=== PATIENT | female | born 1965 | race Caucasian/White ===

== ENCOUNTER 2018-04-14 01:13 | Emergency (ER) | payer BC, OTHER ==
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
[2018-04-14 02:53] VITALS: BP 105/74
== END 2018-04-14 02:52 | disposition home or self-care (01) ==
LOC: ED 01:13
DX: S16.1XXA Strain of muscle, fascia and tendon at neck level, initial encounter (principal); M54.2 Cervicalgia; V49.9XXA Car occupant (driver) (passenger) injured in unspecified traffic accident, initial encounter; Y92.9 Unspecified place or not applicable
CPT/HCPCS: 99282

== ENCOUNTER → 2018-12-27 05:47 | Day surgery (SDC) | payer OTHER ==
[~2018-12-27 05:47] MED LIST: Buffered Lidocaine 1% SYRIN* 1 ML/SYRINGE INTRADERM ONE; Bupivacaine 0.25% SDV PF* 10 ML VIAL INJ ONE; Lactated Ringers 1000 ML Bag* 1,000 ML IV SCH; Lidocaine 1% INJ* 10 MG/ML 30 ML SDV ONE; Midazolam* 1 MG/ML 2 ML VIAL (2 MG) ONE; Naloxone* 0.4 MG/ML 1 ML VIAL IV PRN; ceFAZolin 2 GM PREMIX in ORs 2 GM/50 ML BAG IVPB ONE; fentaNYL* 50 MCG/ML 2 ML VIAL (100 MCG VIAL) ONE
[2018-12-27 09:01] VITALS: BP 125/78
--- NOTE | 2018-12-27 22:49 | OP ---
OPERATIVE REPORT: DATE OF OPERATION: 12/27/18 DATE OF : 65 SURGEON: Darwin Hoff MD OVEN UNLOADER: BRIGHT Guillen A physician sales service assistant was required for the procedure for assistance with positioning, retraction, and closure. ANESTHESIOLOGIST: Dr. Georgina Smyth. ANESTHESIA: Monitored anesthesia care and local anesthesia. Local anesthesia was a 1:1 ratio of [place] 0.5% and lidocaine 1%, both without epinephrine, placed in the distal forearm and around the wr ist. PRE-OP DIAGNOSIS: Right carpal tunnel syndrome. POST-OP DIAGNOSIS: Right carpal tunnel syndrome. OPERATIVE PROCEDURE: Right open carpal tunnel release. ANTIBIOTICS: Ancef 2 g IV. IV FLUIDS: See anesthesia note. TOURNIQUET TIME: 11 minutes at 250 mmHg, forearm. WODK-RW-WDPI TIME: 10 minutes. SPECIMEN: None. IMPLANTS: None. COMPLICATIONS: None. ESTIMATED BLOOD LOSS: Minimal. INDICATIONS FOR PROCEDURE: The patient has a long history of symptoms of the right hand, carpal tunn el, brought on by work activities. The patient treatment it unsuccessfully with wrist bracing. Elec trodiagnostic study showed moderate carpal tunnel syndrome, right hand. The patient opted for surger y. Discussed risks and potential complications. DESCRIPTION OF PROCEDURE: In the preoperative holding, the patient signed written consent. [facility] e extremity was marked in preoperative holding. Consent was for endoscopic versus open, but the endo scopic carpal tunnel instrumentation was not available. The patient was brought back to the [facility] room on stretcher. Hand table was applied. Tourniquet was placed around the forearm. The patient was sedated. Mini time-out was performed. Local anesthesia was applied into the forearm and wrist area. We next prepped and draped. A surgical time-out was performed. Standard open skin incision was made. I switched knives. Dissected down the longitudinal fascia. R etractor was placed and deepened. Incised longitudinal fascia. Approached transverse carpal ligamen t. Cleared it off superficially. Incised it with a 15 blade. Cleaned the undersurface of the transv erse carpal ligament with a [place] elevator. I used spreading dissection to expose it superficially. Completed the release distally. Repositioned myself. Flexed the wrist a bit and released the transverse carpal ligament proximally w ith scissors. Irrigation. Closure of the skin with horizontal mattress stitches using nylon 4-0 suture. Xeroform, 4x4's, sterile Webril, Coban. Tourniquet was elevated just prior to skin incision and dropped after the full dressing had been appl ied. The patient was lightened of sedation and brought to the PACU. DISPOSITION: The patient will follow up in 10 to 14 days. Wound care instructions provided. Pain m edication provided. [id number]/[facility] #: [id number]
== END | disposition home or self-care (01) ==
LOC: OR 05:47
PROVIDERS: ATTEND Orthopaedic Surgery
DX: G56.01 Carpal tunnel syndrome, right upper limb (principal); I10 Essential (primary) hypertension; Z72.0 Tobacco use; K21.9 Gastro-esophageal reflux disease without esophagitis
CPT/HCPCS: J0690; J2250; J3010; J3490

== ENCOUNTER 2019-06-24 05:33 | Inpatient (IN) | payer BC, OTHER ==
[~2019-06-24 05:33] MED LIST changes: -Bupivacaine 0.25% SDV PF* 10 ML VIAL INJ ONE; -Lactated Ringers 1000 ML Bag* 1,000 ML IV SCH; -Lidocaine 1% INJ* 10 MG/ML 30 ML SDV ONE; -Midazolam* 1 MG/ML 2 ML VIAL (2 MG) ONE; -Naloxone* 0.4 MG/ML 1 ML VIAL IV PRN; -ceFAZolin 2 GM PREMIX in ORs 2 GM/50 ML BAG IVPB ONE; -fentaNYL* 50 MCG/ML 2 ML VIAL (100 MCG VIAL) ONE
[2019-06-24] MEDS ORDERED: Gabapentin CAP(*) 300 MG PO ONE (06:00)
[2019-06-24] MEDS ORDERED: Lactated Ringers 1000 ML Bag* 1,000 ML IV SCH ×2 (06:00→13:00)
[2019-06-24] MEDS ORDERED: celeCOXIB CAP* 200 MG PO ONE (06:00)
[2019-06-24] MEDS ORDERED: Acetaminophen TAB* 325 MG PO ONE (06:00)
[2019-06-24] MEDS ORDERED: Acetaminophen TAB* 325 MG ONE (06:01)
[2019-06-24] MEDS ORDERED: Vancomycin(*) 1,000 MG VIAL ONE (06:01)
[2019-06-24] MEDS ORDERED: Gabapentin CAP(*) 300 MG ONE (06:01)
[2019-06-24] MEDS ORDERED: celeCOXIB CAP* 200 MG ONE (06:02)
[2019-06-24] MEDS ORDERED: Buffered Lidocaine 1% SYRIN* 1 ML/SYRINGE INTRADERM ONE (06:02)
[2019-06-24] MEDS ORDERED: Propofol* 10 MG/ML 20 ML BTL ONE (06:45)
[2019-06-24] MEDS ORDERED: fentaNYL* 50 MCG/ML 5 ML VIAL (250 MCG VIAL) ONE (06:45)
[2019-06-24] MEDS ORDERED: Midazolam* 1 MG/ML 2 ML VIAL (2 MG) ONE (06:45)
[2019-06-24] MEDS ORDERED: Lidocaine 2% PF* 10 ML AMP ONE (06:45)
[2019-06-24] MEDS ORDERED: Succinylcholine* 20 MG/ML 10 ML VIAL ONE (06:45)
[2019-06-24] MEDS ORDERED: Remifentanil* 2 MG VIAL ONE (06:46)
[2019-06-24] MEDS ORDERED: Propofol* 500 MG/50 ML BTL ONE ×2 (06:52→09:40)
[2019-06-24] MEDS ORDERED: Lidocaine 1% w EPI 1:200,000* SDV 30 ML VIAL ONE ×2 (07:24→07:39)
[2019-06-24] MEDS ORDERED: Bacitracin INJECTION* 50,000 UNITS ONE (07:24)
[2019-06-24] MEDS ORDERED: Artificial Tear OPHTH.OINT* 3.5 GM ONE (07:35)
[2019-06-24] MEDS ORDERED: Dexamethasone IV* 4 MG/ML 1 ML (4 MG) ONE (08:40)
[2019-06-24] MEDS ORDERED: HYDROmorphone INJ1* 1 MG/ML SYRINGE ONE (08:53)
[2019-06-24] MEDS ORDERED: Naloxone* 0.4 MG/ML 1 ML VIAL IV PRN (10:24)
[2019-06-24] MEDS ORDERED: diPHENhydraMINE IV* 50 MG/ML 1 ml VIAL (BENADRYL) IV PRN (10:24)
[2019-06-24] MEDS ORDERED: PROCHLORPERAZINE INJ 5 MG/ML 2 ML VIAL IV PRN (10:24)
[2019-06-24] MEDS ORDERED: HYDROmorphone INJ1* 1 MG/ML SYRINGE IV PRN (10:24)
[2019-06-24] MEDS ORDERED: Ondansetron INJ* 2 MG/ML VIAL IV PRN ×2 (10:24→12:09)
[2019-06-24] MEDS ORDERED: Ondansetron INJ* 2 MG/ML VIAL ONE (11:02)
[2019-06-24] MEDS ORDERED: oxyCODONE TAB* 5 MG TAB ONE (12:07)
[2019-06-24] MEDS: oxyCODONE TAB* 5 MG TAB PO PRN ×2 (12:08→12:10)
[2019-06-24] MEDS ORDERED: Acetaminophen TAB* 325 MG PO PRN (12:09)
[2019-06-24] MEDS ORDERED: HYDROcodone/ACETAMIN 5-325 MG* 1 TAB PO PRN (12:09)
[2019-06-24] MEDS ORDERED: Magnesium Hydroxide LIQ* 30 ML UDC PO PRN (12:09)
[2019-06-24] MEDS: Vancomycin(*) 1,000 MG - ED ONCE IVPB SCH ×4 (13:51→13:52)
[2019-06-24] MEDS ORDERED: hydrALAZINE IV* 20 MG/ML VIAL IV SLOW PU PRN (13:54)
[2019-06-24] MEDS: Lisinopril TAB* 10 MG PO SCH (14:39)
[2019-06-24] MEDS ORDERED: Nicotine Lozenge* mini 2 MG LOZNG.MINI MT PRN (14:45)
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
[2019-06-24 15:28] LABS: ABS Lymphocytes 0.8 10^3/ul (1.0-4.8); ABS Monocytes 0.1 10^3/ul (0-0.8); ABS Neutrophils 10.5 10^3/ul (1.5-7.7); Hematocrit 36 % (35-47); Hemoglobin 12.3 g/dL (12.0-16.0); Lymphocyte % 7.4 %; Mean Corpuscular HGB Conc 34 g/dL (31-36); Mean Corpuscular Hemoglobin 31 pg (27-31); Mean Corpuscular Volume 92 fL (80-97); Mean Platelet Volume 7.6 fL (7.4-10.4); Platelet Count 253 10^3/uL (150-450); Red Blood Count 3.94 10^6 /uL (3.70-4.87); Red Cell Distribution Width 14 % (10-15); White Blood Count 11.4 10^3/uL (3.5-10.8)
[2019-06-24 15:57] LABS: BUN/Creatinine Ratio 22.1 (8-20); Calcium 9.2 mg/dL (8.6-10.3); EGFR African American 94.9 (>60); EGFR Non-African American 78.4 (>60); Potassium 4.1 mmol/L (3.5-5.0)
--- NOTE | 2019-06-24 16:10 | OP ---
DATE OF OPERATION: 06/24/19 - ROOM #334 DATE OF : 65 SURGEON: Cortney Huber MD MAIL PROCESSOR: CAMERON Rosenberg. The case was done with the assistance of CAMERON because of the complexity of the case. ANESTHESIA: General. PRE-OP DIAGNOSES: 1. Degenerative disk disease. 2. Herniated nucleus pulposus. 3. Cervical myelopathy. POST-OP DIAGNOSES: 1. Degenerative disk disease. 2. Herniated nucleus pulposus. 3. Cervical myelopathy. OPERATIVE PROCEDURE: The patient underwent anterior cervical diskectomy and fusion at C5-6 and C6-7 with PEEK interbody cages, locally harvested autologous bone graft and DBX with plate and screws with intraoperative monitoring. ESTIMATED BLOOD LOSS: 20 cc. COMPLICATIONS: None. SUMMARY: The patient is a very pleasant 53-year-old female with complaints of neck pain radiating mostly to the left upper extremity with signs of myelopathy with MRI findings consistent with large disk herniation at C5-6 and disk herniation with degenerative disk disease at C4-5. After failing conservative treatment modalities, she was offered the option of surgical intervention. After explaining the expectations, limitations, and possible complications of the procedure to the patient with complications including, but not limited to bleeding, infection, risk of injury to adjacent structures, coma, paralysis, , need for additional procedures, anesthesia risks, stroke, blindness, cancer, instability, hardware failure, adjacent level disease, pseudoarthrosis, spinal fluid leak, injury to the recurrent laryngeal nerve, Arpit syndrome, injury to the esophagus or trachea, need for tracheostomy or gastrostomy, need for prolonged ICU stay, prolonged hospitalization, prolonged rehabilitation, postoperative hematoma formation; the patient was agreeable to proceed with surgery and informed consent was obtained. The patient understood that her condition may not improve and in fact may get worse after surgery and that the purpose of the surgery is to prevent from worsening of her myelopathy. The patient understood that operative plan may be modified according to intraoperative findings and conditions and that the procedure may be aborted or done in more than 1 stages and that she may need to have additional procedures in the future. She understood that she may require prolonged ICU stay, need for tracheostomy or gastrostomy, or prolonged rehabilitation. DESCRIPTION OF PROCEDURE: The patient was brought to the operating room and was placed under general anesthesia by the anesthesia team. She was carefully positioned supine on the Edwin table and all bony prominences were meticulously padded. Her skin was prepped and draped in the standard fashion, and after appropriate surgical pause and patient identification, a small transverse incision towards the right of the midline was marked on the skin over the level of C5. After infiltrating the skin with local anesthetic, a #10 surgical blade was used to incise the skin and the incision was carried down to the subcutaneous tissue with use of Bovie cautery. The skin was carefully undermined with tenotomy scissors and then the platysma was gently elevated and divided with tenotomy scissors. After meticulous dissection with sharp and blunt dissection, the plane between the medial border of the sternocleidomastoid and the medial structures was gently developed and self- retaining retractors were introduced further into the field. Intraoperative fluoroscopic imaging confirmed appropriate surgical level and [place] pins were then inserted in the C4, C5, and C7 vertebral bodies. Self-retaining retractors were introduced further into the field and attention was brought to perform a diskectomy and preparation of the disk space at C5-6 level under microscopic magnification. The annulus fibrosus was incised with #15 surgical blade and after performing a standard diskectomy with pituitary rongeurs, Kerrison punches, curettes and high-speed drill, the posterior longitudinal ligament was identified. Of note, during the disk preparation, the anterior osteophytes were removed with Kerrison punches and were saved for the arthrodesis part of the procedure. The large disk herniation was identified as expected from the preoperative imaging and disk fragments were gently removed with use of fine blunt nerve hook. Then, the posterior longitudinal ligament was gently divided with use of #1 Kerrison punches and the thecal sac was then freed from any compression phenomenon. Indentation on the midline of the thecal sac was identified and was believed to be the sequelae of the central disk herniation. After the decompression, the thecal sac was found to be free of any pressure phenomenon and the spinal cord was pulsating nicely. After copious irrigation, confirmation of meticulous hemostasis, meticulous inspection and appropriate sizing of the disk space, an 8-mm height PEEK interbody cage filled with locally harvested bone graft and DBX was inserted. The [place] pin from the C6 level was gently removed and the self-retaining retractors were then repositioned for the C4-5 level. Of note, every time that the self-retaining retractors were positioned, the Apfelbaum maneuver was performed. A similar procedure was performed for the C4-5 level and after excellent decompression of the thecal sac, 8-mm PEEK interbody cage filled with locally harvested bone graft during the diskectomy and disk preparation phase as well as DBX was inserted. The remaining of the [place] pins was then removed and after confirmation of meticulous hemostasis, the preparation of the anterior vertebral bodies was performed for the placement of the surgical plate. A Medtronic Zevo cervical plate was then placed and was secured in place with temporary pins. Intraoperative fluoroscopic imaging confirmed excellent placement of all hardware. After using hand drill and placing the 13- mm titanium screws, intraoperative fluoroscopic imaging confirmed excellent placement of all hardware. Then, the self-retaining retractors were removed from the field and after copious irrigation, confirmation of meticulous hemostasis and meticulous inspection, the wound was closed by layers with 2-0 interrupted Vicryl sutures to approximate the platysma and inverted interrupted 2-0 Vicryl sutures to approximate the subcutaneous tissue. The skin was covered with Dermabond. At the end of the procedure, all counts were reported to be correct. The patient remained hemodynamically stable throughout the case. She was then extubated and was transferred to Recovery in excellent condition, moving all extremities well. The case was done with the assistance of CAMERON because of the complexity of the case. [id number]/[facility] #: [id number] [facility]
[2019-06-24] MEDS ORDERED: buPROPion SR TAB.SR* 100 MG PO ONE (17:00)
[2019-06-25] MEDS ORDERED: buPROPion SR TAB.SR* 100 MG PO ONE (08:45)
[2019-06-25] MEDS: HYDROcodone/ACETAMIN 5-325 MG* 1 TAB PO PRN ×3 (08:57→20:00)
[2019-06-25] MEDS: Lisinopril TAB* 10 MG PO SCH (08:59)
[2019-06-25] MEDS: Pantoprazole TAB * 40 MG TAB PO SCH (08:59)
[2019-06-25] MEDS: buPROPion SR TAB.SR* 150 MG PO SCH ×2 (09:02→16:50)
--- NOTE | 2019-06-25 17:18 | PN ---
Subjective Date of Service: 06/25/19 Interval History: Patient seen and examined. Just returned from [facility]. States pain is well controlled. Denies any UE weakness or paresthesias. Notes a mild headache, denies n/v, no SOB, no chest pain. Objective Active Medications: Acetaminophen (Tylenol Tab*) 650 mg PO Q4H PRN PRN Reason: MILD PAIN or TEMP > 100.4 Last Admin: 06/24/19 22:33 Dose: 650 mg Hydrocodone Bitart/Acetaminophen ([place] 5-325 Tab*) 1 tab PO Q4H PRN PRN Reason: moderate pain Last Admin: 06/25/19 07:49 Dose: 1 tab Hydrocodone Bitart/Acetaminophen ([place] 5-325 Tab*) 2 tab PO Q4H PRN PRN Reason: PAIN - SEVERE Last Admin: 06/25/19 15:01 Dose: 2 tab Bupropion HCl (Wellbutrin Sr Tab*) 150 mg PO BID WITH MEALS [facility] Last Admin: 06/25/19 16:50 Dose: 150 mg Hydralazine HCl (Apresoline Iv*) 10 mg IV SLOW PU Q4H PRN PRN Reason: BLOOD PRESSURE Lactated Ringer's (Lactated Ringers 1000 Ml Bag*) 1,000 mls @ 50 mls/hr IV .per rate [facility] Last Admin: 06/24/19 13:36 Dose: 50 mls/hr Lisinopril (Prinivil Tab*) 20 mg PO DAILY [facility] Last Admin: 06/25/19 08:59 Dose: 20 mg Magnesium Hydroxide (Milk Of Magnesia Liq*) 30 ml PO DAILY PRN PRN Reason: CONSTIPATION Last Admin: 06/25/19 10:28 Dose: 30 ml Nicotine Polacrilex (Nicotine Lozenge Mini) 2 mg MT Q2H PRN PRN Reason: CRAVING Ondansetron HCl (Zofran Inj*) 4 mg IV Q6H PRN PRN Reason: NAUSEA/VOMITING Pantoprazole Sodium (Protonix Tab*) 40 mg PO DAILY [facility] Last Admin: 06/25/19 08:59 Dose: 40 mg Vital Signs - 8 hr 06/25/19 06/25/19 06/25/19 10:24 10:34 11:51 Temperature 98.3 F Pulse Rate 65 Respiratory 18 18 16 Rate Blood Pressure 116/62 (mmHg) O2 Sat by Pulse 97 Oximetry 06/25/19 06/25/19 06/25/19 15:01 15:29 16:49 Temperature 98.2 F Pulse Rate 71 Respiratory 18 18 18 Rate Blood Pressure 116/54 (mmHg) O2 Sat by Pulse 97 Oximetry Oxygen Devices in Use Now: None Appearance: alert, NAD Eyes: PERRLA Ears/Nose/Mouth/Throat: Mucous Membranes Moist Neck: NL Appearance and Movements; NL JVP, Trachea Midline Respiratory: Symmetrical Chest Expansion and Respiratory Effort, Clear to Auscultation Cardiovascular: NL Sounds; No Murmurs; No JVD, RRR Extremities: No Edema Skin: No Rash or Ulcers Neurological: Alert and Oriented x 3, NL Sensation, NL Gait, NL Muscle Strength and Tone Nutrition: Taking PO's Result Diagrams: 06/24/19 15:14 06/24/19 15:14 Diagnostic Imaging: Patient Name: RIANA GALVAN Medical Record#: [id number] Ordering Physician: Cortney Huber MD Acct.#: [id number] : 1965 Age: 53 Sex: F Location: SURGICAL STAY UNIT Exam Date: 06/25/19 0600 ADM Status: ADM IN Order Information: SP CERVICAL 2-3 VWS Accession Number: [id number] CPT: 62873 Indication: Postop assessment following cervical fusion yesterday. Comparison: No relevant prior exams available on the [facility] [place] [place] PACS for comparison. Technique: AP, open-mouth odontoid, and lateral views cervical spine. REPORT AND IMPRESSION: #. Postsurgical change of C4-C5 and C5-C6 core decompression and fusion with bone graft markers at the disc spaces as well as an anterior cortical plate and paired vertebral body screws at C4, C5, and C6. #. Negative for fracture. #. Anatomic alignment. #. Only mild prominence of the prevertebral soft tissue contours. Assess/Plan/Problems-Billing Assessment: This is a 53 year old female with hx of cervical spondylosis that presented for elective ACDF. - Patient Problems (1) Status post cervical spinal fusion Code(s): Z98.1 - ARTHRODESIS STATUS SNOMED Code(s): 6755882096987 Comment: - POD1 C4-C5, C5-C6 ACDF - POC as per neurosurgery - [place] J collar - Pain control - Bowl regimen - Ambulate as tolerated (2) GERD (gastroesophageal reflux disease) Code(s): K21.9 - GASTRO-ESOPHAGEAL REFLUX DISEASE WITHOUT ESOPHAGITIS SNOMED Code(s): 934089922 Comment: - PPI (3) HTN (hypertension) Code(s): I10 - ESSENTIAL (PRIMARY) HYPERTENSION SNOMED Code(s): 46646055 Comment: - Stable on lisinopril (4) Depression Code(s): F32.9 - MAJOR DEPRESSIVE DISORDER, SINGLE EPISODE, UNSPECIFIED SNOMED Code(s): 32325465 Comment: - continue buproprion (5) DVT prophylaxis Code(s): Z29.9 - ENCOUNTER FOR PROPHYLACTIC MEASURES, UNSPECIFIED SNOMED Code( s): 397956563 Comment: - SCDS and ambulate (6) Full code status Code(s): Z78.9 - OTHER SPECIFIED HEALTH STATUS SNOMED Code(s): 671997672 Status and Disposition: Medically stable. Clear for discharge per neurosurgery.
--- NOTE | 2019-06-25 19:23 | PN ---
Progress Note - Progress Note Date of Service: 06/25/19 SOAP: Subjective: []No events ON. Tolerated procedure well yesterday. Preop LUE pain and numbness resolved. Ambulates, Tolerates PO well, Voids. Objective: []VSS, Afebrile Wound s,c,d. AAOx3, LUCIO, CN II-XII grossly intact Motor 5/5 all extremities Sensory grossly intact to light touch Assessment: []53 yof POD#1 ACDF Plan: []Monitor VS, Neurochecks Encourage ambulation. XR reveals good placement of hardware, good alignment of spine. IS DC planning, possible in am. Ana Laura Huber MD
[2019-06-26] MEDS: HYDROcodone/ACETAMIN 5-325 MG* 1 TAB PO PRN ×3 (01:16→13:41)
[2019-06-26] MEDS: Lisinopril TAB* 10 MG PO SCH (08:23)
[2019-06-26] MEDS: Pantoprazole TAB * 40 MG TAB PO SCH (08:23)
[2019-06-26] MEDS: buPROPion SR TAB.SR* 150 MG PO SCH (08:23)
[2019-06-26 11:28] VITALS: BP 122/60
--- NOTE | 2019-06-26 18:56 | PN ---
Progress Note - Progress Note Date of Service: 06/26/19 SOAP: Subjective: [] No events ON. Preop LUE pain and numbness resolved. Ambulates, Tolerates PO well , Voids. Wants to go home. Objective: []VSS, Afebrile Wound s,c,d. AAOx3, LUCIO, CN II-XII grossly intact Motor 5/5 all extremities Sensory grossly intact to light touch Assessment: []53 yof POD#2 ACDF Plan: []Monitor VS, Neurochecks Encourage ambulation. DC today. Full instyructions were given Appreciate IM care. Ana Laura Huber MD
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
== END 2019-06-26 14:43 | disposition home or self-care (01) | DRG 321 ==
LOC: OR 05:33 → SSU 12:09
PROVIDERS: ADMIT Neurological Surgery; ATTEND Internal Medicine
PROC: 0RB30ZZ Excision of Cervical Vertebral Disc, Open Approach (ICD-10-PCS; 2019-06-24)
PROC: 4A11X4G Monitoring of Peripheral Nervous Electrical Activity, Intraoperative, External Approach (ICD-10-PCS; 2019-06-24)
PROC: 0RG20A0 Fusion of 2 or more Cervical Vertebral Joints with Interbody Fusion Device, Anterior Approach, Anterior Column, Open Approach (ICD-10-PCS; principal; 2019-06-24 07:30)
DX: M50.022 Cervical disc disorder at C5-C6 level with myelopathy (principal); M47.12 Other spondylosis with myelopathy, cervical region; I10 Essential (primary) hypertension; F17.210 Nicotine dependence, cigarettes, uncomplicated; R51 Headache; M48.02 Spinal stenosis, cervical region; K21.9 Gastro-esophageal reflux disease without esophagitis; F32.9 Major depressive disorder, single episode, unspecified; M25.812 Other specified joint disorders, left shoulder; Z88.0 Allergy status to penicillin; Z82.3 Family history of stroke; Z72.89 Other problems related to lifestyle
CPT/HCPCS: 36415; 72040; 76000; 80048; 85025; 86850; 86900; 86901; A9270-GY; C1713; C1776; C9359; J0330; J1100; J1170; J2001; J2250; J2405; J2704; J3010; J3370

== ENCOUNTER 2019-10-28 17:00 | Emergency (ER) | payer BC, OTHER ==
--- OUTSIDE RECORDS SUMMARY | 2019-10-28 17:39 | XMS REPORT | Continuity of Care Document ---
:1965 External Reference #:[id number] Author Name Cortney Huber MD (transmitted by agent of provider Rachel Guzmán ) Address [address] [place] [address] [place] [address] Care Team Providers Name Role Phone Aissatou Taylor NP - Family Care Team Information Cardiac Rehabilitation Program Director [phone] Miguelangel Wilson MD - Family Medicine Care Team Information Cardiac Rehabilitation Program Director [phone] Problems Description No Information Available Social History Type Date Description Comments Sex Female ETOH Use Rarely consumes alcohol Tobacco Use Start: Unknown Patient is a current smoker, 1-2 per day smokes every day Recreational Drug Use Never Used Drugs Smoking Status Reviewed: 10/01/19 Patient is a current smoker, 1-2 per day smokes every day Exercise Type/Frequency Exercises sporadically Allergies, Adverse Reactions, Alerts Active Allergies Reaction Severity Comments Date Penicillin 07/30/2018 Medications Active Medications SIG Qnty Indications Ordering Provider Date Lisinopril 1 by mouth every Unknown 20mg Tablets day Omeprazole 1 by mouth every Unknown 20mg Capsules DR day Acetaminophen Extra 2 tabs by mouth Unknown Strength every 8 hours as 500mg Tablets needed for pain Bupropion Hydrochloride 1 by mouth twice Unknown ER (SR) a day 200mg Tablets ER 12HR Immunizations Description No Information Available Vital Signs Date Vital Result Comment 10/01/2019 11:39am Height 61 inches 5'1" Weight 173.00 lb Heart Rate 62 /min BP Systolic 150 mmHg BP Diastolic 80 mmHg Pain Level 3 shoulder BMI (Body Mass Index) 32.7 kg/m2 09/17/2019 1:12pm Height 61 inches 5'1" Weight 160.00 lb Heart Rate 62 /min BP Systolic 148 mmHg BP Diastolic 92 mmHg Respiratory Rate 16 /min Body Temperature 98.3 F Pain Level 6 O2 % BldC Oximetry 98 % BMI (Body Mass Index) 30.2 kg/m2 Results Test Acquired Date Facility Test Result H/L Range Note Type & Screen 06/24/2019 [facility] Patient Blood A Negative [address] [place] [address] [phone] Antibody Screen NEGATIVE CBC No Diff 05/30/2019 [facility] White Blood 11.4 10^3/uL High 3.5-10.[address] [place] [address] [phone] Red Blood Count 4.39 10^6/uL Normal 3.70-4.87 Hemoglobin 13.6 g/dL Normal 12.0-16.0 Hematocrit 41 % Normal 35-47 Mean Corpuscular Volume 93 fL Normal 80-97 Mean Corpuscular Hemoglobin 31 pg Normal 27-31 Mean Corpuscular HGB Conc 34 g/dL Normal 31-36 Red Cell Distribution Width 14 % Normal 10-15 Platelet Count 309 10^3/uL Normal 150-450 Mean Platelet Volume 8.4 fL Normal 7.4-10.4 Urinalysis Profile 05/30/2019 [facility] Urine Color Yellow [address] [place] [address] [phone] Urine Appearance Cloudy Urine Specific [place] 1.024 Normal 1.010-1.030 Urine pH 5.0 Normal 5-9 Urine Urobilinogen Negative Negative Urine Ketones Negative Negative Urine Protein Negative Negative Urine Leukocytes 1+ Abnormal Negative Urine Blood Negative Negative Urine Nitrite Negative Negative Urine Bilirubin Negative Negative Urine Glucose Negative Negative Urine White Blood Cell 1+(6-10/hpf) Abnormal Absent Urine Red Blood Cell 1+(3-5/hpf) Abnormal Absent Urine Bacteria Absent Absent Urine Squamous Epithelial Cell Present Abnormal Absent Inr/Protime 05/30/2019 [facility] Inr 0.98 Normal 0.82-1.09 2 [address] [place] [address] [phone] Laboratory test 05/30/2019 [facility] Partial 36.3 Normal 26.0 -38.[address] [facility] [place] [address] Time PTT [phone] Basic Metabolic 05/30/2019 [facility] Sodium 138 mmol/L Normal 135-145 Panel [address] [facility] [place] [address] [phone] Potassium 4.0 mmol/L Normal 3.5-5.0 Chloride 105 mmol/L Normal 101-111 Co2 Carbon Dioxide 26 mmol/L Normal 22-32 Anion Gap 7 mmol/L Normal 2-11 Glucose 93 mg/dL Normal 70-100 Blood Urea Nitrogen 11 mg/dL Normal 6-24 Creatinine 0.78 mg/dL Normal 0.51-0.95 BUN/Creatinine Ratio 14.1 Normal 8-20 Calcium 9.5 mg/dL Normal 8.6-10.3 Egfr Non- 77.3 >60 Egfr 93.5 >60 3 Laboratory test 05/30/2019 [facility] HCG 2.56 mIU/mL [address] [place], [place] [address] [phone] Type & Screen 05/30/2019 [facility] Patient Blood A Negative [address] [place] [address] [phone] Antibody Screen NEGATIVE Urine Culture And 05/30/2019 [facility] Urine Culture SEE RESULT [address] [place] [address] [phone] 1 OTHER SPONDYLOSIS WITH MYELOPATHY, CERVICAL REGION 2 Standard intensity warfarin therapeutic range: 2.0-3.0 High intensity warfarin therapeutic range: 2.5-3.5 3 Because ethnic data is not always readily available, this report includes an eGFR for both -Americans and non- Americans. The National Kidney Disease Education Program (NKDEP) does not endorse the use of the MDRD equation for patients that are not between the ages of 18 and 70, are , have extremes of body size, muscle mass, or nutritional status, or are non- or non-. According to the National Kidney Foundation, irrespective of diagnosis, the stage of the disease is based on the level of kidney function: Stage Description GFR(mL/min/1.73 m(2)) 1 Kidney damage with normal or decreased GFR 90 2 Kidney damage with mild decrease in GFR 60-89 3 Moderate decrease in GFR 30-59 4 Severe decrease in GFR 15-29 5 Kidney failure <15 (or dialysis) 4 <5.0 Negative 5.0 - 25.0 Indeterminate (Repeat testing recommended after 72 hours) >25.0 Positive Perimenopausal women can display HCG levels of up to 20 mIU/mL 5 SEE RESULT BELOW Name: TIA PENDLETON : [address]: Cortney Huber MD Acct: [id number] Unit: [id number] AGE: 53 Location: PAT Re05/30/19 SEX: F Status: REG REF SPEC: [id number] NETTA: 05/30/19-[address]: Cortney Huber MD REQ: [id number] RECD: 05/30/19 STATUS: COMP _ SOURCE: URINE SPDESC: ORDERED: Urine Culture Procedure Result Reported Site Urine Culture Final 05/31/19- 1223 ML No Growth (<1,000 CFU/mL) * ML - Main Lab . END OF REPORT DEPARTMENT OF PATHOLOGY, [address] [place] [address] Martin Bello M.D. Director [facility] # [id number] Procedures Date Code Description Status 06/24/201922371 Insertion Interbody Biomechanical Device; Each Interspace Completed 06/24/201947335 Anterior Instrumentation 2-3 Vertebral Segments Completed 06/24/201999194 additional level cervical below C2 Completed 06/24/201905354 arthrodesis,anterior interbody incl disc space Completed prep,discectomy,de 06/24/2019 Autograft For Spine Surgery (Incls Harvesting The Graft) Completed 06/24/2019 12486 Allograft For Spine Surgery, Morselized Completed 04/29/2019 25497 Diffusing Capacity Completed 04/29/2019 29266 Plethysmography Determination Lung Volumes & Per Airway Completed Resist 04/29/2019 63276 Pulmonary Function><Bronchodil Completed Medical Devices Description No Information Available Encounters Type Date Location Provider Dx Diagnosis Office Visit 06/26/2019 [facility] Shanelle M50.022 Cervical disc 10:47a Assoc,vijaya Dukes, disorder at C5-C6 Hospitalists PHARMACY TECH level with myelopathy I10 Essential (primary) hypertension K21.9 Gastro-esophageal reflux disease without esophagitis F32.9 Major depressive disorder, single episode, unspecified Office Visit 06/25/2019 10:47a [place] [facility] Timmons I10 Essential Assoc,vijaya Dukes, (primary) Hospitalists PHARMACY TECH hypertension K21.9 Gastro-esophageal reflux disease without esophagitis F32.9 Major depressive disorder, single episode, unspecified Z98.1 Arthrodesis status Office Visit 06/24/2019 10:46a [facility] Natty Luu, I10 Essential Assoc,vijaya PHARMACY TECH (primary) Hospitalists hypertension K21.9 Gastro-esophageal reflux disease without esophagitis Z98.1 Arthrodesis status Office Visit 04/30/2019 [facility] M47.12 Other 9:30a [facility] Huber MD spondylosis with myelopathy, cervical region M47.22 Other spondylosis with radiculopathy, cervical region M50.022 Cervical disc disorder at C5-C6 level with myelopathy M47.12 Other spondylosis with myelopathy, cervical region Assessments Date Code Description Provider 10/01/2019 M50.321 Other cervical disc degeneration at Cortney Huber MD C4-C5 level 10/01/2019 M47.12 Other spondylosis with myelopathy, Cortney Huber MD cervical region 09/17/2019 M75.42 Impingement syndrome of left shoulder Darwin Hoff MD 09/17/2019 M75.52 Bursitis of left shoulder Darwin Hoff MD 09/17/2019 M19.012 Primary osteoarthritis, left shoulder Darwin Hoff MD 07/30/2019 Z09 Surgical follow-up Cortney Huber MD 07/30/2019 M50.321 Other cervical disc degeneration at Cortney Huber MD C4-C5 level 07/30/2019 M50.022 Cervical disc disorder at C5-C6 level Cortney Huber MD with myelopathy 07/30/2019 Z48.89 Encounter for other specified surgical Cortney Huber MD aftercare 07/30/2019 M50.321 Other cervical disc degeneration at Cortney Huber MD C4-C5 level 07/02/2019 Z48.89 Encounter for other specified surgical BRIGHT Hernandez aftercare 06/26/2019 M50.022 Cervical disc disorder at C5-C6 level Shanelle Dukes NP with myelopathy 06/26/2019 I10 Essential (primary) hypertension Shanelle Dukes, PHARMACY TECH 06/26/2019 K21.9 Gastro-esophageal reflux disease without Shanelle Dukes PHARMACY TECH esophagitis 06/26/2019 F32.9 Major depressive disorder, single Shanelle Dukes PHARMACY TECH episode, unspecified 06/25/2019 I10 Essential (primary) hypertension Shanelle Dukes, PHARMACY TECH 06/25/2019 K21.9 Gastro-esophageal reflux disease without Shanelle Dukes PHARMACY TECH esophagitis 06/25/2019 F32.9 Major depressive disorder, single Shanelle Leah Doto, PHARMACY TECH episode, unspecified 06/25/2019 Z98.1 Arthrodesis status Shanelle [place] Dukes, PHARMACY TECH 06/24/2019 I10 Essential (primary) hypertension Natty Luu, DIVINE 06/24/2019 K21.9 Gastro-esophageal reflux disease without Natty Luu NP esophagitis 06/24/2019 Z98.1 Arthrodesis status Natty Luu, DIVINE 06/24/2019 M50.022 Cervical disc disorder at C5-C6 level Cortney Huber MD with myelopathy 06/24/2019 M47.12 Other spondylosis with myelopathy, Cortney Huber MD cervical region 06/24/2019 M50.321 Other cervical disc degeneration at Cortney Huber MD C4-C5 level 05/28/2019 M47.12 Other spondylosis with myelopathy, Cortney Huber MD cervical region 05/28/2019 M50.022 Cervical disc disorder at C5-C6 level Cortney Huber MD with myelopathy 05/07/2019 M47.12 Other spondylosis with myelopathy, Cortney Huber MD cervical region 04/30/2019 M47.12 Other spondylosis with myelopathy, Cortney Huber MD cervical region 04/30/2019 M47.22 Other spondylosis with radiculopathy, Cortney Huber MD cervical region 04/30/2019 M50.022 Cervical disc disorder at C5-C6 level Cortney Huber MD with myelopathy 04/30/2019 M47.12 Other spondylosis with myelopathy, Cortney Huber MD cervical region 04/29/2019 R05 Cough Delia Reed MD Plan of Treatment Future Appointment(s):02/13/2020 11:00 am - Cortney Huber MD at [facility]11/20/2019 2:30 pm - Darwin Hoff MD at [facility] [place]11/26/2019 9:00 am - Darwin Hoff MD at [facility] at [facility]3810/01/2019 - Cortney Huber MDM50.321 Other cervical disc degeneration at C4-C5 levelNew Xrays:SP Cerv Comp/Obl, Flex, Ext, Ordered: 10/01/19Follow up:RV in 3-6 months, after surgery with Dr Burt.M47.12 Other spondylosis with myelopathy, cervical region Functional Status Description No Information Available Mental Status Description No Information Available Referrals Description No Information Available
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
[2019-10-28 17:40] LABS: ABS Basophils 0.1 10^3/ul (0-0.2); ABS Eosinophils 0.2 10^3/ul (0-0.6); ABS Lymphocytes 3.3 10^3/ul (1.0-4.8); ABS Monocytes 0.5 10^3/ul (0-0.8); ABS Neutrophils 5.1 10^3/ul (1.5-7.7); Eosinophil % 2.6 %; Hematocrit 38 % (35-47); Hemoglobin 13.5 g/dL (12.0-16.0); Lymphocyte % 35.7 %; Mean Corpuscular HGB Conc 36 g/dL (31-36); Mean Corpuscular Hemoglobin 33 pg (27-31); Mean Corpuscular Volume 92 fL (80-97); Platelet Count 299 10^3/uL (150-450); Red Blood Count 4.12 10^6 /uL (3.70-4.87); Red Cell Distribution Width 14 % (10-15); White Blood Count 9.1 10^3/uL (3.5-10.8)
--- OUTSIDE RECORDS SUMMARY | 2019-10-28 17:40 | XMS REPORT | Continuity of Care Document ---
:1965 External Reference #:[id number] Author Name Darwin Hoff MD (transmitted by agent of provider Geetha Miguel) Address [address] [place] [id number] Care Team Providers Name Role Phone Aissatou Taylor NP - Family Care Team Information [place] [phone] Miguelangel Wilson MD - Family Medicine Care Team Information [place] Problems Description No Information Available Social History Type Date Description Comments Sex Female ETOH Use Rarely consumes alcohol Tobacco Use Start: Unknown Patient is a current smoker, 1-2 per day smokes every day Recreational Drug Use Never Used Drugs Smoking Status Reviewed: 09/17/19 Patient is a current smoker, 1-2 per day smokes every day Exercise Type/Frequency Exercises sporadically Allergies, Adverse Reactions, Alerts Active Allergies Reaction Severity Comments Date Penicillin 07/30/2018 Medications Active Medications SIG Qnty Indications Ordering Provider Date Lisinopril 1 by mouth every Unknown 20mg Tablets day Omeprazole 1 by mouth every Unknown 20mg Capsules DR day Bupropion Hydrochloride 1 tablets by Aissatou Taylor, ER (SR) mouth twice per FINANCIAL SYSTEMS ANALYST 150mg Tablets ER day 12HR Acetaminophen Extra 2 tabs by mouth Unknown Strength every 8 hours as 500mg Tablets needed for pain Immunizations Description No Information Available Vital Signs Date Vital Result Comment 09/17/2019 1:12pm Height 61 inches 5'1" Weight 160.00 lb Heart Rate 62 /min BP Systolic 148 mmHg BP Diastolic 92 mmHg Respiratory Rate 16 /min Body Temperature 98.3 F Pain Level 6 O2 % BldC Oximetry 98 % BMI (Body Mass Index) 30.2 kg/m2 07/30/2019 12:46pm Height 61 inches 5'1" Weight 157.00 lb Heart Rate 64 /min BP Systolic Sitting 124 mmHg BP Diastolic Sitting 80 mmHg Respiratory Rate 16 /min Pain Level 3 O2 % BldC Oximetry 98.4 % BMI (Body Mass Index) 29.7 kg/m2 Results Test Acquired Date Facility Test Result H/L Range Note Type & Screen 06/24/2019 [facility] Patient Blood A Negative [address] [place] [address] [phone] Antibody Screen NEGATIVE CBC No Diff 05/30/2019 [facility] White Blood 11.4 10^3/uL High 3.5-10.[address] [place] [address] [phone] Red Blood Count 4.39 10^6/uL Normal 3.70-4.87 Hemoglobin 13.6 g/dL Normal 12.0-16.0 Hematocrit 41 % Normal 35-47 Mean Corpuscular Volume 93 fL Normal 80-97 Mean Corpuscular Hemoglobin 31 pg Normal 27-31 Mean Corpuscular HGB Conc 34 g/dL Normal 31-36 Red Cell Distribution Width 14 % Normal 10-15 Platelet Count 309 10^3/uL Normal 150-450 Mean Platelet Volume 8.4 fL Normal 7.4-10.4 Urinalysis Profile 05/30/2019 [facility] Urine Color Yellow [address] [place] [address] [phone] Urine Appearance Cloudy Urine Specific [place] 1.024 Normal 1.010-1.030 Urine pH 5.0 Normal [...] Epithelial Cell Present Abnormal Absent Inr/Protime 05/30/2019 [facility] Inr 0.98 Normal 0.82-1.[address] [place] [address] [phone] Laboratory test 05/30/2019 [facility] Partial 36.3 Normal 26.0 -38.[address] [place] [address] Time PTT [phone] Basic Metabolic 05/30/2019 [facility] Sodium 138 mmol/L Normal 135-[address] [place] [address] [phone] Potassium 4.0 mmol/L Normal 3.5-5.0 Chloride 105 mmol/L Normal 101-111 Co2 Carbon Dioxide 26 mmol/L Normal 22-32 Anion Gap 7 mmol/L Normal 2-11 Glucose 93 mg/dL Normal 70-100 Blood Urea Nitrogen 11 mg/dL Normal 6-24 Creatinine 0.78 mg/dL Normal 0.51-0.95 BUN/Creatinine Ratio 14.1 Normal 8-20 Calcium 9.5 mg/dL Normal 8.6-10.3 Egfr Non- 77.3 >60 Egfr 93.5 >60 3 Laboratory test 05/30/2019 [facility] HCG 2.56 mIU/mL [address] [place] [address] [phone] Type & Screen 05/30/2019 [facility] Patient Blood A Negative [address] [place] [address] [phone] Antibody Screen NEGATIVE Urine Culture And 05/30/2019 [facility] Urine Culture SEE RESULT [address] [place] [address] [phone] 1 OTHER SPONDYLOSIS WITH MYELOPATHY, CERVICAL REGION [...] [address]: Cortney Huber MD Acct: [id number] Unit: [id number] AGE: 53 Location: [facility] Re05/30/19 SEX: F Status: REG REF SPEC: [id number] NETTA: 05/30/19-[address]: Cortney Huber MD REQ: [id number] RECD: 05/30/19 STATUS: COMP _ SOURCE: URINE SPDESC: ORDERED: Urine Culture Procedure Result Reported Site Urine Culture Final 05/31/19- 1223 ML No Growth (<1,000 CFU/mL) * ML - Main Lab . END OF REPORT DEPARTMENT OF PATHOLOGY, [address] [place] [address] Martin Bello M.D. Director [facility] # [id number] Procedures Date Code Description Status 06/24/2019 35433 Insertion Interbody Biomechanical Device; Each Interspace Completed 06/24/201935090 Anterior Instrumentation 2-3 Vertebral Segments Completed 06/24/201922443 additional level cervical below C2 Completed 06/24/201992854 arthrodesis,anterior interbody incl disc space Completed prep,discectomy,de 06/24/2019 Autograft For Spine Surgery ([employer] Graft) Completed 06/24/201960483 Allograft For Spine Surgery, Morselized Completed 04/29/2019 85710 Diffusing Capacity Completed 04/29/2019 59570 Plethysmography Determination Lung Volumes & Per Airway Completed Resist 04/29/2019 60100 Pulmonary Function><Bronchodil Completed Medical Devices Description No Information Available Encounters Type Date Location Provider Dx Diagnosis Office Visit 06/26/2019 [facility] Shanelle M50.022 Cervical disc 10:47a Assoc,vijaya Dukes, disorder at C5-C6 Hospitalists FINANCIAL SYSTEMS ANALYST level with myelopathy I10 Essential (primary) hypertension K21.9 Gastro-esophageal reflux disease without esophagitis F32.9 Major depressive disorder, single episode, unspecified Office Visit 06/25/2019 10:47a [facility] Shanelle I10 Essential Assvijaya ugarte, (primary) Hospitalists FINANCIAL SYSTEMS ANALYST hypertension K21.9 Gastro-esophageal reflux disease without esophagitis F32.9 Major depressive disorder, single episode, unspecified Z98.1 Arthrodesis status Office Visit 06/24/2019 10:46a [facility] Natty Luu, I10 Essential Assoc,vijaya FINANCIAL SYSTEMS ANALYST (primary) Hospitalists hypertension K21.9 Gastro-esophageal reflux disease without esophagitis Z98.1 Arthrodesis status Office Visit 04/30/2019 [facility] M47.12 Other 9:30a [facility] Huber MD spondylosis with myelopathy, cervical region M47.22 Other spondylosis with radiculopathy, cervical region M50.022 Cervical disc disorder at C5-C6 level with myelopathy M47.12 Other spondylosis with myelopathy, cervical region Assessments Date Code Description Provider 09/17/2019 M75.42 Impingement syndrome of left shoulder [...] myelopathy 06/26/2019 I10 Essential (primary) hypertension Shanelle Dukes NP 06/26/2019 K21.9 Gastro-esophageal reflux disease without Shanelle Dukes NP esophagitis 06/26/2019 F32.9 Major depressive disorder, single Shanelle Dukes NP episode, unspecified 06/25/2019 I10 Essential (primary) hypertension Shanelle Dukes NP 06/25/2019 K21.9 Gastro-esophageal reflux disease without Shanelle Dukes NP esophagitis 06/25/2019 F32.9 Major depressive disorder, single Shanelle Dukes NP episode, unspecified 06/25/2019 Z98.1 Arthrodesis status Shanelle Dukes NP 06/24/2019 I10 Essential (primary) hypertension Natty Luu, FINANCIAL SYSTEMS ANALYST 06/24/2019 K21.9 Gastro-esophageal reflux disease without Natty Luu, FINANCIAL SYSTEMS ANALYST esophagitis 06/24/2019 Z98.1 Arthrodesis status Natty Luu, FINANCIAL SYSTEMS ANALYST 06/24/2019 M50.022 Cervical disc disorder at C5-C6 [...] region 04/29/2019 R05 Cough Delia Reed MD 03/25/2019 M75.32 Calcific tendinitis of left shoulder Darwin Hoff MD 03/25/2019 M75.52 Bursitis of left shoulder Darwin Hoff MD 03/25/2019 M75.42 Impingement syndrome of left shoulder Darwin Hoff MD Plan of Treatment Future Appointment(s):10/01/2019 11:00 am - Cortney Huber MD at [facility]09/17/2019 - Darwin Hoff, MDM75.42 Impingement syndrome of left shoulderFollow up:Follow up: to ORM75.52 Bursitis of left hdrluimnL20.012 Primary osteoarthritis, left shoulder Functional Status Description No Information Available Mental Status Description No Information Available Referrals Refer to Reason for Referral Status Appt Date Cortney Huber MD MRI showing C5-C6 disc protrusion. Created Patient also having right sided headache. Seeing neurologist on 05/01/[address] [place] [phone]
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
--- OUTSIDE RECORDS SUMMARY | 2019-10-28 17:40 | XMS REPORT | Continuity of Care Document ---
:1965 External Reference #:[id number] Author Name Darwin Hoff MD (transmitted by agent of provider Avelina Manning) Address [address] [place] [id number] Care Team Providers Name Role Phone Aissatou Taylor NP - Family Care Team Information Executive Admin [phone] Miguelangel Wilson MD - Family Medicine Care Team Information Executive Admin Problems Description No Information Available Social History Type Date Description Comments Sex Female ETOH Use Rarely consumes alcohol Tobacco Use Start: Unknown Patient is a current smoker, 1-2 per day smokes every day Recreational Drug Use Never Used Drugs Smoking Status Reviewed: 07/30/19 Patient is a current smoker, 1-2 per [...] Aissatou Taylor, ER (SR) mouth twice per PARAMEDIC RN 150mg Tablets ER day 12HR Acetaminophen Extra 2 tabs by mouth Unknown Strength every 8 hours as 500mg Tablets needed for pain Immunizations Description No Information Available Vital Signs Date Vital Result Comment 07/30/2019 12:46pm Height 61 inches 5'1" Weight 157.00 lb Heart Rate 64 /min BP Systolic Sitting 124 mmHg BP Diastolic Sitting 80 mmHg Respiratory Rate 16 /min Pain Level 3 O2 % BldC Oximetry 98.4 % BMI (Body Mass Index) 29.7 kg/m2 07/02/2019 9:31am Weight 154.00 lb Heart Rate 78 /min BP Systolic Sitting 110 mmHg BP Diastolic Sitting 62 mmHg Body Temperature 98.6 F Pain Level 2 Neck Results Test Acquired Date Facility Test Result H/L Range Note Type & Screen 06/24/2019 [facility] Patient Blood A Negative [address] [place] [address] [phone] Antibody Screen NEGATIVE CBC No Diff 05/30/2019 [facility] White Blood 11.4 10^3/uL High 3.5-10.[address] [place] [address] [phone] Red Blood Count 4.39 10^6/uL Normal 3.70-4.87 Hemoglobin 13.6 g/dL Normal 12.0-16.0 Hematocrit 41 % Normal 35-47 Mean Corpuscular Volume 93 fL Normal 80-97 Mean Corpuscular Hemoglobin 31 pg Normal 27-31 Mean Corpuscular HGB Conc 34 g/dL Normal 31-36 Red Cell Distribution Width 14 % Normal 10-15 Platelet Count 309 10^3/uL Normal 150-450 Mean Platelet Volume 8.4 fL Normal 7.4-10.4 Urinalysis Profile 05/30/2019 [facility] Urine Color Yellow [address] [place] [address] [phone] Urine Appearance Cloudy Urine Specific [place] 1.024 Normal 1.010-1.030 Urine pH 5.0 Normal [...] Epithelial Cell Present Abnormal Absent Inr/Protime 05/30/2019 [facility] Inr 0.98 Normal 0.82-1.[address] [place] [address] [phone] Laboratory test 05/30/2019 [facility] Partial 36.3 Normal 26.0 -38.0 finding [address] [facility] [place] [place] [address] Time PTT [phone] Basic Metabolic 05/30/2019 [facility] Sodium 138 mmol/L Normal 135-[address] [place] [address] [phone] Potassium 4.0 mmol/L Normal 3.5-5.0 Chloride 105 mmol/L Normal 101-111 Co2 Carbon Dioxide 26 mmol/L Normal 22-32 Anion Gap 7 mmol/L Normal 2-11 Glucose 93 mg/dL Normal 70-100 Blood Urea Nitrogen 11 mg/dL Normal 6-24 Creatinine 0.78 mg/dL Normal 0.51-0.95 BUN/Creatinine Ratio 14.1 Normal 8-20 Calcium 9.5 mg/dL Normal 8.6-10.3 Egfr Non- 77.3 >60 Egfr 93.5 >60 3 Laboratory test 05/30/2019 [facility] HCG 2.56 mIU/mL [address] [place] [address] [phone] Type & Screen 05/30/2019 [facility] Patient Blood A Negative [address] [place] [address] [phone] Antibody Screen NEGATIVE Urine Culture And 05/30/2019 [facility] Urine Culture SEE RESULT [address] [place] [address] [phone] OTHER SPONDYLOSIS WITH MYELOPATHY, CERVICAL REGION [...] [address]: Cortney Huber MD Acct: [id number] Unit: [id number] AGE: 53 Location: [facility] Re05/30/19 SEX: F Status: REG REF SPEC: [id number] NETTA: 05/30/19-[address]: Cortney Huber MD REQ: [id number] RECD: 05/30/19 STATUS: COMP _ SOURCE: URINE SPDESC: ORDERED: Urine Culture Procedure Result Reported Site Urine Culture Final 05/31/19- 1223 ML No Growth (<1,000 CFU/mL) * ML - Main Lab . END OF REPORT DEPARTMENT OF PATHOLOGY, [address] [place] [address] Martin Bello M.D. Director [facility] # [id number] Procedures Date Code Description Status 06/24/201998254 Insertion Interbody Biomechanical Device; Each Interspace Completed 06/24/201948081 Anterior Instrumentation 2-3 Vertebral Segments Completed 06/24/2019 28411 additional level cervical below C2 Completed 06/24/2019 99268 arthrodesis,anterior interbody incl disc space Completed prep,discectomy,de 06/24/2019 Autograft For Spine Surgery ([employer] Graft) Completed 06/24/201985113 Allograft For Spine Surgery, Morselized Completed 04/29/2019 09524 Diffusing Capacity Completed 04/29/2019 77110 Plethysmography Determination Lung Volumes & Per Airway Completed Resist 04/29/2019 43369 Pulmonary Function><Bronchodil Completed Medical Devices Description No Information Available Encounters Type Date Location Provider Dx Diagnosis Office Visit 06/26/2019 [facility] Shanelle M50.022 Cervical disc 10:47a Assoc,vijaya Dukes, disorder at C5-C6 Hospitalists PARAMEDIC RN level with myelopathy I10 Essential (primary) hypertension K21.9 Gastro-esophageal reflux disease without esophagitis F32.9 Major depressive disorder, single episode, unspecified Office Visit 06/25/2019 10:47a [facility] Tim[facility] I10 Essential Assoc,vijaya Dukes, (primary) Hospitalists PARAMEDIC RN hypertension K21.9 Gastro-esophageal reflux disease without esophagitis F32.9 Major depressive disorder, single episode, unspecified Z98.1 Arthrodesis status Office Visit 06/24/2019 10:46a [facility] Natty Luu, I10 Essential Assoc, PARAMEDIC RN (primary) Hospitalists hypertension K21.9 Gastro-esophageal reflux disease without esophagitis Z98.1 Arthrodesis status Office Visit 04/30/2019 [facility] M47.12 Other 9:30a [facility] Huber MD spondylosis with myelopathy, cervical region M47.22 Other spondylosis with radiculopathy, cervical region M50.022 Cervical disc disorder at C5-C6 level with myelopathy M47.12 Other spondylosis with myelopathy, cervical region Assessments Date Code Description Provider 07/30/2019 Z09 Surgical follow-up Cortney Huber MD [...] 06/26/2019 I10 [facility]ential (primary) hypertension Shanelle Dukes, PARAMEDIC RN 06/26/2019 K21.9 Gastro-esophageal reflux disease without Shanelle Dukes, PARAMEDIC RN esophagitis 06/26/2019 F32.9 Major depressive disorder, single Shanelle Dukes, PARAMEDIC RN episode, unspecified 06/25/2019 I10 Essential (primary) hypertension Shanelle Dukes, PARAMEDIC RN 06/25/2019 K21.9 Gastro-esophageal reflux disease without Shanelle Dukes, PARAMEDIC RN esophagitis 06/25/2019 F32.9 Major depressive disorder, single Shanelle Dukes, PARAMEDIC RN episode, unspecified 06/25/2019 Z98.1 Arthrodesis status Shanelle Dukes PARAMEDIC RN 06/24/2019 I10 Essential (primary) hypertension Natty Luu, DIVINE 06/24/2019 K21.9 Gastro-esophageal reflux disease without Natty uLu, DIVIEN esophagitis 06/24/2019 Z98.1 Arthrodesis status Natty Luu, PARAMEDIC RN 06/24/2019 M50.022 Cervical disc disorder at C5-C6 [...] Darwin Hoff MD Plan of Treatment Future Appointment(s):09/17/2019 1:15 pm - Darwin Hoff MD at [facility]10/01/2019 11:00 am - Cortney Huber MD at [facility]07/30/2019 - Cortney Huber MDZ09 Encntr for f/u exam aft trtmt for cond oth than malig akqjegR83.321 Other cervical disc degeneration at C4-C5 levelFollow up:RV in 2 months. Please obtain XR prior to next vist.M50.022 Cervical disc disorder at C5-C6 level with [id number] Encounter for other specified surgical aftercare Functional Status Description No Information Available Mental Status Description No Information Available Referrals Refer to Reason for Referral Status Appt Date Cortney Huber MD MRI showing C5-C6 disc protrusion. Created Patient also having right sided headache. Seeing neurologist on 05/01/[address] [place] [phone]
[2019-10-28 17:45] LABS: INR 1.04 (0.82-1.09)
[2019-10-28 17:58] LABS: Albumin 4.4 g/dL (3.2-5.2); Albumin/Globulin Ratio 1.6 (1-3); BUN/Creatinine Ratio 21.4 (8-20); Calcium 9.7 mg/dL (8.6-10.3); EGFR African American 85.5 (>60); EGFR Non-African American 70.7 (>60); Globulin 2.8 g/dL (2-4); Potassium 4.1 mmol/L (3.5-5.0); Total Bilirubin 0.3 mg/dL (0.2-1.0); Total Protein 7.2 g/dL (6.4-8.9)
--- NOTE | 2019-10-28 21:13 | ED ---
HPI Chest Pain - HPI Summary HPI Summary: Patient complains of substernal chest tightness, bilateral breast pain, bilateral upper back pain starting at 1 PM today. Chest tightness described as intermittent, lasts for a few minutes at a time. 5/10 pain at worst. 1/10 currently. States history of same symptoms one time before 3 weeks ago. Pain is not worse with eating or exertion. Denies SOB. Denies fever, cough, sore throat, and/V/D, abdominal pain, change in urine, change in BM. Medical history is GERD, HTN. Positive smoker. Patient had endoscopy in May 2019 which was negative. - History of Current Complaint Chief Complaint: EDChestPainROMI Time Seen by Provider: 10/28/19 20:53 Hx Obtained From: Patient Onset/Duration: Started Hours Ago Timing: Constant Initial Severity: Moderate Current Severity: Moderate Pain Intensity: 5 Pain Scale Used: 0-10 Numeric Chest Pain Location: Mid Sternal, Left Anterior, Right Anterior Chest Pain Radiates To:: Back Character: Tightness Aggravating Factor(s): Nothing Alleviating Factor(s): Nothing Associated Signs and Symptoms: Positive: Chest Pain - Additional Pertinent History Primary Care Physician: [id number] - Allergy/Home Medications Allergies/Adverse Reactions: Allergies Allergy/AdvReac Type Severity Reaction Status Date / Time Penicillins Allergy Intermediate Itching Verified 06/24/19 06:21 Home Medications: Home Medications Acetaminophen [Tylenol Extra Strength] 1,000 mg PO Q4HR PRN 12/25/18 [History Confirmed 10/28/19] Lisinopril TAB* [Prinivil TAB*] 20 mg PO DAILY 10/28/19 [History Confirmed 10/28] Omeprazole (Nf) [Prilosec (NF)] 40 mg PO DAILY 10/28/19 [History Confirmed 10/28] buPROPion SR TAB* [Wellbutrin SR TAB*] 200 mg PO BID 10/28/19 [History Confirmed 10/28/19] PMH/Surg Hx/FS Hx/Imm Hx Endocrine/Hematology History: Denies: Hx Anticoagulant Therapy, Hx Diabetes Cardiovascular History: Reports: Hx Hypertension - on lisinopril Denies: Hx Pacemaker/ICD, Other Cardiovascular Problems/Disorders Respiratory History: Denies: Hx Asthma, Hx Sleep Apnea, Other Respiratory Problems/Disorders GI History: Reports: Hx Gastroesophageal Reflux Disease - omeprazole, Hx Irritable Bowel - states she has alot constipation Denies: Other GI Disorders History: Denies: Hx Renal Disease, Other Problems/Disorders Musculoskeletal History: Reports: Hx Arthritis, Hx Bursitis - Left arm, Hx Tendonitis - Bilateral carpal tunnel, calcific tendonitis left shoulder Denies: Hx Scoliosis Sensory History: Denies: Hx Contacts or Glasses, Hx Hearing Aid Opthamlomology History: Denies: Hx Contacts or Glasses Neurological History: Reports: Hx Headaches - HAVE BEEN HAPPENING ON AND OFF SINCE CCIDENT, Hx Nerve Disease - Bilateral carpal tunnel, Other Neuro Impairments/Disorders - History of Vertigo Psychiatric History: Reports: Hx Anxiety - no medication, Hx Depression - no medication Denies: Hx Panic Disorder - Cancer History Hx Chemotherapy: No - Surgical History Surgery Procedure, Year, and Place: APPENDECTOMY. ORAL SURGERIES. . RT WRIST CARPAL TUNNEL 12/27/18 Hx Anesthesia Reactions: No Infectious Disease History: No Infectious Disease History: Denies: Traveled Outside the [place] in Last 30 Days - Family History Known Family History: Positive: Non-Contributory - Social History Alcohol Use: Rare Hx Substance Use: No Substance Use Type: Reports: None Hx Tobacco Use: Yes Smoking Status (MU): Heavy Every Day Tobacco Smoker Type: Cigarettes Amount Used/How Often: 1-1.5 ppd for 35 years Review of Systems Constitutional: Negative Eyes: Negative ENT: Negative Positive: Chest Pain Respiratory: Negative Gastrointestinal: Negative Genitourinary: Negative Musculoskeletal: Negative Skin: Negative Neurological/Mental Status: Negative Psychological: Normal All Other Systems Reviewed And Are Negative: Yes Physical Exam - Summary Physical Exam Summary: Chest pain mildly reproducible. Lung sounds clear to auscultation bilaterally. Regular rate and rhythm. Tenderness to palpation in bilateral trapezius and upper paraspinal muscles consistent with muscle spasm. Neuro exam normal. Triage Information Reviewed: Yes Vital Signs On Initial Exam: Initial Vitals Temp Pulse Resp BP Pulse Ox 97.8 F 71 18 123/71 100 10/28/19 17:11 10/28/19 17:11 10/28/19 17:11 10/28/19 17:11 10/28/19 17:11 Vital Signs Reviewed: Yes Appearance: Positive: Well-Appearing Skin: Positive: Warm Head/Face: Positive: Normal Head/Face Inspection Eyes: Positive: Normal Neck: Positive: Supple Respiratory/Lung Sounds: Positive: Clear to Auscultation Cardiovascular: Positive: Normal Abdomen Description: Positive: Nontender Musculoskeletal: Positive: Normal Neurological: Positive: Normal Psychiatric: Positive: Normal AVPU Assessment: Alert - Clare Coma Scale Best Eye Response: 4 - Spontaneous Best Motor Response: 6 - Obeys Commands Best Verbal Response: 5 - Oriented Coma Scale Total: 15 Procedures - Sedation Patient Received Moderate/Deep Sedation with Procedure: No Diagnostics - Vital Signs Vital Signs Temp Pulse Resp BP Pulse Ox 10/28/19 19:19 98.7 F 67 16 148/79 97 10/28/19 17:11 97.8 F 71 18 123/71 100 - Laboratory Lab Results: Lab Results 10/28/19 10/28/19 10/28/19 Range/Units 17:33 17:33 17:33 WBC 9.1 (3.5-10.8) 10^3/uL RBC 4.12 (3.70-4.87) 10^6 /uL Hgb 13.5 (12.0-16.0) g/dL Hct 38 (35-47) % MCV 92 (80-97) fL MCH 33 H (27-31) pg MCHC 36 (31-36) g/dL RDW 14 (10-15) % Plt Count 299 (150-450) 10^3/uL MPV 8.0 (7.4-10.4) fL Neut % (Auto) 55.6 % Lymph % (Auto) 35.7 % [place] % (Auto) 5.2 % Eos % (Auto) 2.6 % Baso % (Auto) 0.9 % Absolute Neuts (auto) 5.1 (1.5-7.7) 10^3/ul Absolute Lymphs (auto) 3.3 (1.0-4.8) 10^3/ul Absolute Monos (auto) 0.5 (0-0.8) 10^3/ul Absolute Eos (auto) 0.2 (0-0.6) 10^3/ul Absolute Basos (auto) 0.1 (0-0.2) 10^3/ul Absolute Nucleated RBC 0.0 10^3/ul Nucleated RBC % 0.0 INR (Anticoag Therapy) 1.04 (0.82-1.09) Sodium 136 (135-145) mmol/L Potassium 4.1 (3.5-5.0) mmol/L Chloride 105 (101-111) mmol/L Carbon Dioxide 23 (22-32) mmol/L Anion Gap 8 (2-11) mmol/L BUN 18 (6-24) mg/dL Creatinine 0.84 (0.51-0.95) mg/dL Est GFR ( Amer) 85.5 (>60) Est GFR (Non-Af Amer) 70.7 (>60) BUN/Creatinine Ratio 21.4 H (8-20) Glucose 105 H (70-100) mg/dL Calcium 9.7 (8.6-10.3) mg/dL Total Bilirubin 0.30 (0.2-1.0) mg/dL AST 19 (13-39) U/L ALT 14 (7-52) U/L Alkaline Phosphatase 126 H (34-104) U/L Troponin I 0.00 (<0.03) ng/mL Total Protein 7.2 (6.4-8.9) g/dL Albumin 4.4 (3.2-5.2) g/dL Globulin 2.8 (2-4) g/dL Albumin/Globulin Ratio 1.6 (1-3) 02/25/20 Range/Units 20:15 WBC (3.5-10.8) 10^3/uL RBC (3.70-4.87) 10^6 /uL Hgb (12.0-16.0) g/dL Hct (35-47) % MCV (80-97) fL MCH (27-31) pg MCHC (31-36) g/dL RDW (10-15) % Plt Count (150-450) 10^3/uL MPV (7.4-10.4) fL Neut % (Auto) % Lymph % (Auto) % [place] % (Auto) % Eos % (Auto) % Baso % (Auto) % Absolute Neuts (auto) (1.5-7.7) 10^3/ul Absolute Lymphs (auto) (1.0-4.8) 10^3/ul Absolute Monos (auto) (0-0.8) 10^3/ul Absolute Eos (auto) (0-0.6) 10^3/ul Absolute Basos (auto) (0-0.2) 10^3/ul Absolute Nucleated RBC 10^3/ul Nucleated RBC % INR (Anticoag Therapy) (0.82-1.09) Sodium (135-145) mmol/L Potassium (3.5-5.0) mmol/L Chloride (101-111) mmol/L Carbon Dioxide (22-32) mmol/L Anion Gap (2-11) mmol/L BUN (6-24) mg/dL Creatinine (0.51-0.95) mg/dL Est GFR ( Amer) (>60) Est GFR (Non-Af Amer) (>60) BUN/Creatinine Ratio (8-20) Glucose (70-100) mg/dL Calcium (8.6-10.3) mg/dL Total Bilirubin (0.2-1.0) mg/dL AST (13-39) U/L ALT (7-52) U/L Alkaline Phosphatase (34-104) U/L Troponin I 0.00 (<0.03) ng/mL Total Protein (6.4-8.9) g/dL Albumin (3.2-5.2) g/dL Globulin (2-4) g/dL Albumin/Globulin Ratio (1-3) Result Diagrams: 10/28/19 17:33 10/28/19 17:33 Lab Statement: Any lab studies that have been ordered have been reviewed, and results considered in the medical decision making process. Chest Pain Course/Dx - Course Course Of Treatment: Patient complains of substernal chest tightness, bilateral breast pain, bilateral upper back pain starting at 1 PM today. Chest tightness described as intermittent, lasts for a few minutes at a time. 5/10 pain at worst. 1/10 currently. States history of same symptoms one time before 3 weeks ago. Pain is not worse with eating or exertion. Denies SOB. Denies fever, cough, sore throat, and/V/D, abdominal pain, change in urine, change in BM. Medical history is GERD, HTN. Positive smoker. Patient had endoscopy in May 2019 which was negative. Vital signs within normal limits. Serial troponins negative. Labs unremarkable. EKG sinus rhythm, heart rate of 62, normal P axis. Heart score 2. - Diagnoses Provider Diagnoses: Atypical chest pain, Headache, Back pain Discharge ED - Sign-Out/Discharge Documenting (check all that apply): Patient Departure - Discharge Plan Condition: Stable Disposition: HOME Patient Education Materials: Chest Pain (ED) Referrals: Aissatou Taylor NP [Primary Care Provider] - Additional Instructions: Follow-up with primary care for further evaluation of chest pain. Return to the ED for any new or worsening symptoms. - Billing Disposition and Condition Condition: STABLE Disposition: Home
[2019-10-28] MEDS ORDERED: Lidocaine 2% VISCOUS* 15 ML UDC PO ONE (21:23)
[2019-10-28] MEDS ORDERED: Al Hydrox/Mg Hydrox/Simet LIQ* 30 ML UDC PO ONE (21:23)
[2019-10-28 23:01] VITALS: BP 130/86
== END 2019-10-28 22:50 | disposition home or self-care (01) ==
LOC: ED 17:00
DX: R07.89 Other chest pain (principal); R51 Headache; M54.9 Dorsalgia, unspecified; I10 Essential (primary) hypertension; K21.9 Gastro-esophageal reflux disease without esophagitis; F41.9 Anxiety disorder, unspecified; F32.9 Major depressive disorder, single episode, unspecified; Z90.89 Acquired absence of other organs; F17.210 Nicotine dependence, cigarettes, uncomplicated; Z79.899 Other long term (current) drug therapy; Z88.0 Allergy status to penicillin
CPT/HCPCS: 36415; 80053; 84484; 85025; 85610; 93005; 99282